=== PATIENT | female | born 1975 | race Caucasian/White ===

== ENCOUNTER 2017-09-14 11:41 | Emergency (ER) | payer MEDICARE, MEDICAID ==
[~2017-09-14] VITALS: Ht 172.7 cm; Wt 68.2 kg
[~2017-09-14 11:41] MED LIST: ACET-2119 PO; DIPH25CA83 PO; FERR324T4 PO; HYDR4TAB45 PO; ONDA4TAB6 PO; PANT-47 PO; PROM25TA14 PO; ZOLP5TAB8 PO
[2017-09-14 11:49] VITALS: BP 130/80
[2017-09-14] MEDS ORDERED: proMETHazine 25mg rectal suppository RC ONE (12:35)
[2017-09-14] MEDS ORDERED: HYDROmorphone 1 mg/ml syringe IM ONE (12:35)
[2017-09-14] MEDS ORDERED: HYDROmorphone inj. 0.5 MG/0.5 ML DISP.SYRIN ONE (12:41)
[2017-09-14] MEDS ORDERED: ZOLP10TA5 PO (12:55)
== END 2017-09-14 13:21 | disposition home or self-care (01) ==
LOC: ER 11:41
DX: G43.909 Migraine, unspecified, not intractable, without status migrainosus (principal); G47.00 Insomnia, unspecified; G89.29 Other chronic pain; Z90.49 Acquired absence of other specified parts of digestive tract; Z90.710 Acquired absence of both cervix and uterus; Z98.890 Other specified postprocedural states; Z88.8 Allergy status to other drugs, medicaments and biological substances; Z79.899 Other long term (current) drug therapy
CPT/HCPCS: 96372; 99283; J1170; J7030

== ENCOUNTER 2017-12-08 13:22 | Emergency (ER) | payer MEDICARE, MEDICAID ==
[~2017-12-08] VITALS: Ht 172.7 cm; Wt 66.0 kg
[2017-12-08 13:28] VITALS: BP 148/99
[2017-12-08] MEDS ORDERED: HYDROcodone/acetaminophen 5mg/325mg tablet PO ONE (13:45)
[2017-12-08] MEDS ORDERED: HYDR-3965 PO (14:14)
[2017-12-08] MEDS ORDERED: ondansetron/PF 4mg/2ml inj IM ONE (14:15)
[2017-12-08] MEDS ORDERED: morphine 4 MG/ML inj SYRINge IM ONE (14:15)
[2017-12-08] MEDS ORDERED: LORazepam 2 mg/ml vial IM ONE (14:15)
== END 2017-12-08 15:27 | disposition home or self-care (01) ==
LOC: ER 13:23
DX: S62.101A Fracture of unspecified carpal bone, right wrist, initial encounter for closed fracture (principal); G89.29 Other chronic pain; Z90.49 Acquired absence of other specified parts of digestive tract; Z98.890 Other specified postprocedural states; Z56.0 Unemployment, unspecified; Z88.8 Allergy status to other drugs, medicaments and biological substances; Z79.899 Other long term (current) drug therapy; W01.0XXA Fall on same level from slipping, tripping and stumbling without subsequent striking against object, initial encounter; Y93.89 Activity, other specified; Y92.89 Other specified places as the place of occurrence of the external cause; Y99.8 Other external cause status
CPT/HCPCS: 29125; 73090; 73110; 73130; 96372; 99284; J2060; J2270; J2405